=== PATIENT | male | born 1980 | race Caucasian/White ===

== ENCOUNTER 2022-04-11 18:45 | Emergency (ER) | payer SELFPAY ==
[~2022-04-11] VITALS: Ht 195.6 cm; Wt 100.0 kg
[2022-04-11 19:05] VITALS: BP 119/74
[2022-04-11 19:15] VITALS: BP 113/73
[2022-04-11 19:30] VITALS: BP 113/69
[2022-04-11 19:45] VITALS: BP 107/73
[2022-04-11 20:18] VITALS: BP 108/63
[2022-04-11] MEDS ORDERED: NAPROXEN500 MG PO (20:24)
[2022-04-11 20:30] VITALS: BP 113/74
== END 2022-04-11 20:37 | disposition home or self-care (01) | DRG 605 ==
LOC: ED 18:45
PROC: 0HQ0XZZ Repair Scalp Skin, External Approach (ICD-10-PCS; principal; 2022-04-11)
DX: S01.01XA Laceration without foreign body of scalp, initial encounter (principal); W20.8XXA Other cause of strike by thrown, projected or falling object, initial encounter; Y93.H9 Activity, other involving exterior property and land maintenance, building and construction; F17.210 Nicotine dependence, cigarettes, uncomplicated

== ENCOUNTER 2022-04-23 22:57 | Emergency (ER) | payer OTHER ==
[~2022-04-23] VITALS: Ht 195.6 cm; Wt 102.0 kg
[~2022-04-23 22:57] MED LIST: NAPROXEN500 MG PO
[2022-04-23 23:03] VITALS: BP 127/70
[2022-04-23 23:30] VITALS: BP 112/76
== END 2022-04-23 23:39 | disposition home or self-care (01) | DRG 950 ==
LOC: ED 22:57
DX: S01.01XD Laceration without foreign body of scalp, subsequent encounter (principal); X58.XXXD Exposure to other specified factors, subsequent encounter

== ENCOUNTER 2022-09-11 15:32 | Emergency (ER) | payer SELFPAY ==
[~2022-09-11] VITALS: Ht 195.6 cm; Wt 113.6 kg
[2022-09-11 15:36] VITALS: BP 113/71
[2022-09-11 15:45] VITALS: BP 102/67
[2022-09-11] MEDS ORDERED: AMOX/K CLAV875 M1 PO (15:45)
[2022-09-11] MEDS ORDERED: CLINDAMYCIN300 M1 PO (15:45)
[2022-09-11 15:53] VITALS: BP 102/67
== END 2022-09-11 15:59 | disposition home or self-care (01) | DRG 159 ==
LOC: ED 15:32
DX: K08.89 Other specified disorders of teeth and supporting structures (principal)

== ENCOUNTER 2022-10-05 18:41 | Emergency (ER) | payer SELFPAY ==
[~2022-10-05] VITALS: Ht 195.6 cm; Wt 113.6 kg
[~2022-10-05 18:41] MED LIST changes: +AMOX/K CLAV875 M1 PO; +CLINDAMYCIN300 M1 PO
[2022-10-05 19:30] VITALS: BP 128/83
[2022-10-05 19:46] VITALS: BP 125/82
[2022-10-05] MEDS ORDERED: AMOX/K CLAV875 M1 PO (19:47)
[2022-10-05] MEDS ORDERED: NAPROXEN500 MG PO (19:47)
[2022-10-05 19:59] VITALS: BP 125/82
== END 2022-10-05 19:59 | disposition home or self-care (01) | DRG 103 ==
LOC: ED 18:41
DX: R51.9 Headache, unspecified (principal); F17.200 Nicotine dependence, unspecified, uncomplicated

== ENCOUNTER 2022-12-13 13:14 | Emergency (ER) | payer SELFPAY ==
[~2022-12-13] VITALS: Ht 195.6 cm; Wt 108.8 kg
[2022-12-13] MEDS ORDERED: CYCLOBENZAPRINE10 MG PO (18:02)
[2022-12-13] MEDS ORDERED: PREDNISONE10 MG PO (18:02)
[2022-12-13] MEDS ORDERED: GABAPENTIN100 MG PO (18:02)
[2022-12-13] MEDS ORDERED: PERCOCET1 TA4 PO (18:02)
[2022-12-13] MEDS ORDERED: NAPROXEN500 MG PO (18:02)
[2022-12-13 18:19] VITALS: BP 112/85
== END 2022-12-13 18:20 | disposition home or self-care (01) | DRG 74 ==
LOC: ED 13:14
DX: M54.12 Radiculopathy, cervical region (principal)

== ENCOUNTER 2023-01-02 10:44 | Emergency (ER) | payer SELFPAY ==
[~2023-01-02] VITALS: Ht 195.6 cm; Wt 113.0 kg
[~2023-01-02 10:44] MED LIST changes: +CYCLOBENZAPRINE10 MG PO; +GABAPENTIN100 MG PO; +PERCOCET1 TA4 PO; +PREDNISONE10 MG PO
[2023-01-02] MEDS ORDERED: ROBITUSSIN AC10 ML PO (12:04)
[2023-01-02] MEDS ORDERED: KEFLEX500 MG PO (12:04)
[2023-01-02 12:09] VITALS: BP 114/74
== END 2023-01-02 13:28 | disposition home or self-care (01) | DRG 153 ==
LOC: ED 10:44
DX: J06.9 Acute upper respiratory infection, unspecified (principal)

== ENCOUNTER 2023-04-03 10:17 | Emergency (ER) | payer BC ==
[2023-04-03] VITALS (7 sets, daily range): BP systolic 102–120; BP diastolic 70–87
[~2023-04-03] VITALS: Ht 195.6 cm; Wt 108.9 kg
[~2023-04-03 10:17] MED LIST changes: +KEFLEX500 MG PO; +ROBITUSSIN AC10 ML PO
[2023-04-03 11:02] LABS: BASO% 0.1 % (0-3); EOS% 1.9 % (0-8); HEMATOCRIT 44.8 % (39.0-50.0); HEMOGLOBIN 15.1 g/dl (14.0-18.0); IMMATURE GRANULOCYTES 0.2 % (0.0-5.0); LYMPH% 19.1 % (15-41); MEAN CELL VOLUME 92.6 fL CALC (80.0-100.0); MEAN CORPUSCULAR HGB 31.2 pG CALC (26.0-32.0); MEAN CORPUSCULAR HGB CONC 33.7 g/dL CAL (32.0-36.0); MONO% 6.2 % (2-13); NEUT# 7.25 thou/uL (1.82-7.42); NEUT% 72.5 % (42-76); RED BLOOD COUNT 4.84 mill/uL (4.70-6.10); RED CELL DISTRI WIDTH 12.7 % (11.5-15.5)
[2023-04-03 11:18] LABS: ALBUMIN 4.4 g/dL (3.2-5.0); ALKALINE PHOSPHATASE 72 u/l (38-126); ANION GAP 10 (6-22 (CALC)); BILIRUBIN, TOTAL 0.5 mg/dL (0.2-1.3); BUN 12 mg/dL (9-20); BUN/CREATININE RATIO 13 (12-20 (CALC)); CARBON DIOXIDE 26 mmol/l (22-30); CHLORIDE 107 mmol/l (95-108); CREATININE 0.9 mg/dL (0.7-1.3); GFR FOR AFR.AMER. > 60 ML/MIN (>=60 (CALC)); GFR OTHER RACES > 60 ML/MIN (>=60 (CALC)); LIPASE 1060 u/l (23-300); POTASSIUM 3.8 mmol/l (3.5-5.1); SGOT/AST 24 u/l (17-59); SODIUM 139 mmol/l (137-146); TOTAL PROTEIN 7.2 g/dL (6.3-8.2)
[2023-04-03 12:17] LABS: URINE BILIRUBIN - DIPSTICK NEGATIVE (NEGATIVE); URINE BLOOD DIPSTICK NEGATIVE (NEGATIVE); URINE COLOR YELLOW; URINE GLUCOSE - DIPSTICK NEGATIVE (NEGATIVE); URINE KETONE NEGATIVE (NEGATIVE); URINE LEUK ESTERASE NEGATIVE (NEGATIVE); URINE PH 5.5 (4.5-8.0); URINE PROTEIN - DIPSTICK NEGATIVE (NEG-TRACE); URINE SPECIFIC GRAVITY 1.025; URINE UROBILINOGEN - DIPSTICK 0.2 E.U./dL (0.2)
[2023-04-03 12:18] LABS: URINE NITRITE - DIPSTICK NEGATIVE (Negative)
[2023-04-03] MEDS ORDERED: PROTONIX40 M2 PO (15:41)
[2023-04-03] MEDS ORDERED: ONDANSETRON4 MG PO (15:41)
[2023-04-03] MEDS ORDERED: LORTAB 1010 MG PO (15:41)
== END 2023-04-03 16:07 | disposition home or self-care (01) | DRG 440 ==
LOC: ED 10:17
PROVIDERS: Family Medicine
DX: K85.90 Acute pancreatitis without necrosis or infection, unspecified (principal); F17.210 Nicotine dependence, cigarettes, uncomplicated
CPT/HCPCS: Q9967

== ENCOUNTER 2023-04-06 16:33 | Emergency (ER) | payer BC ==
[~2023-04-06] VITALS: Ht 195.6 cm; Wt 104.3 kg
[~2023-04-06 16:33] MED LIST changes: +LORTAB 1010 MG PO; +ONDANSETRON4 MG PO; +PROTONIX40 M2 PO
[2023-04-06 17:25] LABS: BASO% 0.2 % (0-3); EOS% 3.6 % (0-8); HEMATOCRIT 40.8 % (39.0-50.0); HEMOGLOBIN 13.3 g/dl (14.0-18.0); IMMATURE GRANULOCYTES 0.2 % (0.0-5.0); LYMPH% 25.5 % (15-41); MEAN CELL VOLUME 95.6 fL CALC (80.0-100.0); MEAN CORPUSCULAR HGB 31.1 pG CALC (26.0-32.0); MEAN CORPUSCULAR HGB CONC 32.6 g/dL CAL (32.0-36.0); MONO% 6.3 % (2-13); NEUT# 6.16 thou/uL (1.82-7.42); NEUT% 64.2 % (42-76); RED BLOOD COUNT 4.27 mill/uL (4.70-6.10); RED CELL DISTRI WIDTH 12.8 % (11.5-15.5)
[2023-04-06 17:37] LABS: ALBUMIN 3.9 g/dL (3.2-5.0); ALKALINE PHOSPHATASE 59 u/l (38-126); ANION GAP 9 (6-22 (CALC)); BILIRUBIN, TOTAL 0.3 mg/dL (0.2-1.3); BUN 11 mg/dL (9-20); BUN/CREATININE RATIO 11 (12-20 (CALC)); CARBON DIOXIDE 26 mmol/l (22-30); CHLORIDE 106 mmol/l (95-108); GFR FOR AFR.AMER. > 60 ML/MIN (>=60 (CALC)); GFR OTHER RACES > 60 ML/MIN (>=60 (CALC)); LIPASE 71 u/l (23-300); SGOT/AST 24 u/l (17-59); SODIUM 137 mmol/l (137-146); TOTAL PROTEIN 6.4 g/dL (6.3-8.2)
[2023-04-06 19:33] VITALS: BP 107/72
[2023-04-06 19:48] LABS: URINE BILIRUBIN - DIPSTICK NEGATIVE (NEGATIVE); URINE BLOOD DIPSTICK NEGATIVE (NEGATIVE); URINE COLOR YELLOW; URINE GLUCOSE - DIPSTICK NEGATIVE (NEGATIVE); URINE KETONE NEGATIVE (NEGATIVE); URINE LEUK ESTERASE NEGATIVE (NEGATIVE); URINE NITRITE - DIPSTICK NEGATIVE (Negative); URINE PROTEIN - DIPSTICK NEGATIVE (NEG-TRACE); URINE UROBILINOGEN - DIPSTICK 0.2 E.U./dL (0.2)
== END 2023-04-06 19:38 | disposition home or self-care (01) | DRG 392 ==
LOC: ED 16:33
PROVIDERS: Family Medicine
DX: K59.00 Constipation, unspecified (principal)
CPT/HCPCS: Q9967

== ENCOUNTER 2024-01-04 11:40 | Emergency (ER) | payer SELFPAY ==
[~2024-01-04] VITALS: Ht 195.6 cm; Wt 104.0 kg
[~2024-01-04 11:40] MED LIST changes: +XANAX0.5 MG PO
[2024-01-04] MEDS ORDERED: SODIUM CHLORIDE 1,000 ML BTL IR STA (12:18)
[2024-01-04] MEDS ORDERED: NEOMYCIN-BACITRACIN-POLYMYXIN 0.5 GM/PAK PAK TOP STA (12:18)
[2024-01-04] MEDS ORDERED: POVIDONE IODINE 0.5 OZ/BTL TOP STA (12:22)
[2024-01-04 12:46] VITALS: BP 116/78
== END 2024-01-04 12:56 | disposition home or self-care (01) | DRG 605 ==
LOC: ED 11:40
DX: S61.452A Open bite of left hand, initial encounter (principal); S61.451A Open bite of right hand, initial encounter; F17.210 Nicotine dependence, cigarettes, uncomplicated; W55.01XA Bitten by cat, initial encounter; Y93.89 Activity, other specified